=== PATIENT | female | born 1995 | race Caucasian/White ===

== ENCOUNTER 2016-02-14 16:55 | Emergency (ER) ==
[2016-02-14 17:12] VITALS: BP 108/72
[2016-02-14 17:18] LABS: URINE SOURCE CLEAN CATCH
[2016-02-14 17:57] LABS: BILIRUBIN URINE NEGATIVE (NEGATIVE); BLOOD URINE NEGATIVE (NEGATIVE); CLARITY CLEAR (CLEAR); COLOR YELLOW; GLUCOSE URINE NEGATIVE (NEGATIVE); LEUKOCYTES URINE 1+ (NEGATIVE); NITRITE URINE NEGATIVE (NEGATIVE); PROTEIN URINE TRACE mg/dL (NEGATIVE); SP GRAVITY URINE 1.025; UROBILINOGEN URINE NORMAL
[2016-02-14 17:59] LABS: URINE CRYSTAL CA OXALATE PRESENT /HPF; URINE CULTURE PL NEEDED? YES; URINE EPITHELIAL CELLS >10 /HPF (<10); URINE RBC <10 /HPF (<10)
[2016-02-14] MEDS ORDERED: KEFLEX PO ONE (18:07)
--- NOTE | 2016-02-14 18:08 | PROVIDER DOCUMENTATION ---
HPI-General Adult - General Chief Complaint: General Adult Stated Complaint: 7 WEEKS PREG/FLU LIKE SX Time Seen by Provider: 02/14/16 18:04 Source: patient Allergies/Adverse Reactions: Patient Allergies Allergy/AdvReac Type Severity Reaction Status Date / Time latex Allergy Unknown Verified 01/05/16 18:52 codeine AdvReac Severe ITCHING Verified 01/05/16 18:52 prednisone AdvReac Unknown Verified 01/05/16 18:52 Home Medications: Buspirone HCl [Buspar] 10 mg PO QAM 01/12/14 Melatonin 10 mg PO QHS 01/05/16 - History of Present Illness -Gen Adult Nature of Presenting Problems: 21 y/o WF approx 7 weeks by LMP c/o dysuria, frequency, urgency, and fatigue x 24 hours. Denies vaginal bleeding, vaginal discharge or abdominal cramping. Denies fevers, chills or night sweats. Denies cough, congestion, or difficulty breathing. No pre-arrival treatment. Has not had f/u with OBGYN yet. Review of Systems - Adult - REVIEW OF SYSTEMS - ADULT Constitutional: reports: see HPI, fatique. denies: chills, fever Eyes: reports: no symptoms reported. denies: blurred vision, double vision, eye pain Ears, Nose, Mouth & Throat: reports: no symptoms reported. denies: ear pain, nose pain, throat pain Cardiovascular: reports: no symptoms reported. denies: chest pain, palpitations Respiratory: reports: no symptoms reported. denies: cough, shortness of breath , wheezing Gastrointestinal: reports: no symptoms reported. denies: abdominal pain, diarrhea, nausea, vomiting Genitourinary: reports: see HPI, dysuria, frequency, urgency. denies: discharge , flank pain, hematuria, incontinence Musculoskeletal: reports: no symptoms reported. denies: back pain, muscle aches Integumentary: reports: no symptoms reported. denies: rash Neurological: reports: no symptoms reported. denies: headache/migraines Psychiatric: reports: no symptoms reported Endocrine: reports: no symptoms reported Hematologic/Lymphatic: reports: no symptoms reported Allergic/Immunologic: reports: no symptoms reported All Other Systems: Reviewed and Negative Past History - Adult - PAST MEDICAL HISTORY-ADULT Review of Records: reports: Old Records Reviewed, Nursing Assessment Review, Medications Reviewed, Social history reviewed & non-contributory. Major Childhood Illnesses: reports: denies history Cardiovascular: reports: denies history Respiratory: reports: denies history Gastrointestinal: reports: denies history Obstetrical/Gynecological: reports: denies history Genitourinary: reports: denies history Musculoskeletal: reports: denies history Neurological: reports: denies history Psychiatric: reports: anxiety, depression, other (ADD) Endocrine/Immune: reports: denies history Other Conditions: reports: denies history - PRIOR SURGERIES/PROCEDURES Surgical/Procedure History: reports: reviewed, not pertinent, other (w) - IMMUNIZATION STATUS Childhood Immunizations: See Nurse Assessment Flu Vaccine: See Nurse Assessment - FAMILY HISTORY Family History: reviewed, not pertinent, diabetes - SOCIAL HISTORY Living Situation: family Physical Exam-General - PHYSICAL EXAM-ADULT Initial Vital Signs Reviewed: Yes - CONSTITUTIONAL General Appearance: appears well, alert, no apparent distress - EYES Eyes: PERRL/EOMI, pink conjunctivae - HEAD, EARS, NOSE, MOUTH & THROAT HENMT: normocephalic/atraumatic, moist mucous membranes - NECK Neck: non-tender, full range of motion, supple, normal inspection. negative: lymphadenopathy - RESPIRATORY Respiratory: chest non-tender, lungs clear, normal breath sounds, no pleuratic chest pain, no respiratory distress, no accessory muscle use. negative: respiratory distress, decreased breath sounds, accessory muscle use, crackles, rales, rhonchi, wheezing - CARDIOVASCULAR Cardiovascular: normal peripheral pulses, regular rate, rhythm, no edema - GASTROINTESTINAL (ABDOMEN) Abdominal Exam: normal bowel sounds, non tender, soft, no organomegaly, no pulsatile mass. negative: abdominal bruit, abnormal bowel sounds, distended, guarding, rigid, rebound, tenderness - LYMPHATIC Lymphatic: no adenopathy - MUSCULOSKELETAL Back Exam: normal inspection, no CVA tenderness. negative: CVA tenderness Extremity: normal gait - SKIN Integumentary: normal color, normal turgor, warm/dry - NEUROLOGIC Neurologic: grossly normal, no motor/sensory deficits - PSYCHIATRIC Psych/Mental Status: normal mood/affect, normal thought content, normal thought process, oriented x 3 Progress - PLAN OF CARE/RESULTS Progress/Plan/Lab Results: Vital Signs Temp Pulse Resp BP Pulse Ox 02/14/16 17:10 97.2 F L 102 H 18 108/72 100 latex Allergy (Verified 01/05/16 18:52) Unknown codeine Adverse Reaction (Severe, Verified 01/05/16 18:52) ITCHING prednisone Adverse Reaction (Verified 01/05/16 18:52) Unknown Buspirone HCl [Buspar] 10 mg PO QAM 01/12/14 Guaifenesin/D-Methorphan Hb/PE [Deconex Dmx Tablet] 1 each PO TID #30 tablet Melatonin 10 mg PO QHS 01/05/16 Cephalexin [Keflex] 500 mg PO BID #20 capsule 02/14/16 Laboratory 02/14/16 02/14/16 02/14/16 17:21 17:21 17:00 Urine Source CLEAN CATCH Urine Color YELLOW Urine Clarity CLEAR Urine pH 9.0 Ur Specific [place] 1.025 Urine Protein TRACE A Urine Ketones TRACE Urine Blood NEGATIVE Urine Nitrite NEGATIVE Urine Bilirubin NEGATIVE Urine Urobilinogen NORMAL Urine Microscopic RBC <10 Urine WBC 1+ A Urine Microscopic WBC 10-20 A Ur Epithelial Cells >10 A Urine Crystals CA OXALATE PRESENT Urine Bacteria 2+ Urine Glucose NEGATIVE Influenza A (Rapid) NEGATIVE Influenza B (Rapid) NEGATIVE Group A Strep Rapid NEGATIVE Orders Category Date Time Status DIRECT STREP PL Stat Lab 02/14/16 17:[address] Stat Lab 02/14/16 17:[address] W/POSS RFLX CULT [URINALYSIS] Stat Lab 02/14/16 17:00 Completed URINE CULTURE [RM] Routine Lab 02/14/16 18:00 Ordered CephALEXIN [Keflex] Med 02/14/16 18:07 Discontinued 500 mg PO NOW ONE Departure - Departure Time of Disposition Order: 18:07 DIAGNOSIS: Acute UTI Qualifiers: Weeks of gestation: less than 8 weeks Qualified Code(s): Z3A.01 - Less than 8 weeks gestation of Disposition: HOME 01 Certified Medical Emergency: Emergent Condition: Stable Additional Instructions: Follow up with the [facility] Follow Up Instructions: You have been treated by a care provider in the Emergency Department. These instructions are being provided to you so you can have an understanding of how to care for yourself upon discharge. Upon discharge from the Emergency Department, you are responsible for making arrangements for follow-up care by a physician of your choice. Take all prescribed medications as directed. Return to the Emergency Department immediately for any new or worsening symptoms. You may call the Physician Referral phone number at [phone] to obtain a list of Physicians who are taking new patients. Prescriptions: Cephalexin [Keflex] 500 mg PO BID #20 capsule Referrals: None,PCP [Primary Care Provider] - Attestation - Physician/ Mid-level Attestation Patient care was provided by Mid-level provider (COATINGS INSPECTOR/PA):: Yes Mid-level provider:: Christelle Triplett Mid-level documentation review:: The Mid-level provider documentation, treatment plan and medical decision making was reviewed by the physician who agrees with all treatment and medical decision making by the MLP.
== END 2016-02-14 18:37 | disposition home or self-care (01) ==
LOC: P.ED 16:55
DX: O23.41 Unspecified infection of urinary tract in pregnancy, first trimester (principal); Z3A.01 Less than 8 weeks gestation of pregnancy; O26.891 Other specified pregnancy related conditions, first trimester; R30.0 Dysuria; R35.0 Frequency of micturition; R39.15 Urgency of urination; R53.83 Other fatigue; Z79.899 Other long term (current) drug therapy; Z83.3 Family history of diabetes mellitus
CPT/HCPCS: 81001; 87081; 87088; 87430; 87804; 99283

== ENCOUNTER 2016-04-18 16:57 | Emergency (ER) | payer OTHER ==
[2016-04-18 17:13] VITALS: BP 99/68
--- NOTE | 2016-04-18 18:57 | PROVIDER DOCUMENTATION ---
HPI-EENT General - General Chief Complaint: Cold Symptoms Stated Complaint: 17 WEEKS (CONGESTED) Time Seen by Provider: 04/18/16 18:50 Source: patient Allergies/Adverse Reactions: Patient Allergies Allergy/AdvReac Type Severity Reaction Status Date / Time latex Allergy Unknown Verified 04/18/16 17:13 codeine AdvReac Severe ITCHING Verified 04/18/16 17:13 prednisone AdvReac Unknown Verified 04/18/16 17:13 Home Medications: Home Medication List Medication Instructions Recorded Confirmed Last Taken Type Azithromycin [Zithromax Z-Shaq] 250 mg PO DIRECTED #1 pkg 04/18/16 Unknown Rx Promethazine [Phenergan] 1 tab PO DAILY PRN 04/18/16 04/18/16 Unknown History Ranitidine HCl [Zantac 75] 75 mg PO BID 04/18/16 04/18/16 Unknown History - History of Present Illness-EENT General Nature of Presenting Problem: 21 yof c/o cough, congestion, low grade fever, body aches, and nasal drainage for about 2 days. EENT Location: denies: eye (R), eye (L), ear (R), ear (L), nose, mouth, throat, facial, dental, other Quality of Pain: reports: aching. denies: none, burning, cramping, dull, fullness, indigestion, pressure, sharp, stabbing, tearing, throbbing, tightness , other Severity: reports: mild Onset/Duration: reports: 2 days ago. denies: unsure, abrupt, gradual, just prior to arrival, 1/2 hour ago, 1 hour ago, 1-3 hours ago, 4-6 hours ago, 24 hours ago, 3 days ago, 4 days ago, 5 days ago, 6 days ago, 1 week ago, last week , this morning, this afternoon, this evening, last night, other Timing: reports: still present, getting worse Prearrival Treatment: Initiated over the counter meds, Not Used no prearrival treatment, Not Used prescription meds, Not Used squeezing nostrils, Not Used nasal packing, Not Used flushing eyes, Not Used other Associated Symptoms: reports: cough, fever, malaise, sore throat. denies: denies symptoms, change in hearing, drooling, DZ, ear drainage, facial pain/ swelling, WING, MS, nasal congestion/drainage, TRACK EQUIPMENT OPERATOR, poor fluid intake, poor solids intake, sinus infection, SW, tooth pain, voice change, other Locality of Occurance: Home Similar Symptoms Previously?: No Recently seen or treated by another doctor?: No - Eyes Eye Problem Symptoms: denies: eye pain, decrease vision, blurred vision, double vision, curtain, other, burning, itching, sensitivity to light, redness, matting , orbital swelling, eyelid swelling, foreign body sensation - Ears Ear Problem Symptoms: reports: none - Throat/Dental Throat/Dental Problem Symptoms: reports: none Review of Systems - Adult - REVIEW OF SYSTEMS - ADULT Constitutional: reports: see HPI, chills, fever. denies: no symptoms reported, fatique, night sweats, weight gain, weight loss, other Eyes: reports: no symptoms reported. denies: see HPI, discharge, dry eyes, decreased vision, blurred vision, double vision, eye pain, redness, other Ears, Nose, Mouth & Throat: reports: see HPI, sinus problem, throat pain. denies: no symptoms reported, ear discharge, ear pain, hearing loss, tinnitus, epistaxis, nose pain, loose teeth, mouth/dental pain, mouth swelling, hoarseness , throat swelling, other Cardiovascular: reports: no symptoms reported. denies: see HPI, chest pain, edema, heart murmur, irregular heart rate, orthopnea, palpitations, poor circulation, PND, syncope, other Respiratory: reports: no symptoms reported. denies: see HPI, chronic cough, cough, dyspnea on exertion, excessive sputum production, hemoptysis, pleurisy, shortness of breath, wheezing, other Gastrointestinal: reports: no symptoms reported. denies: see HPI, abdominal pain, hematemesis, constipation, diarrhea, difficulty swallowing, frequent heartburn, nausea, poor appetite, rectal bleeding, vomiting, other Genitourinary: reports: no symptoms reported. denies: see HPI, dysuria, discharge, frequency, flank pain, frequent UTI's, hematuria, hesitency, incontinence, urinary retention, urgency, other Musculoskeletal: reports: no symptoms reported. denies: see HPI, bone pain, back pain, frequent leg cramps, joint pain, joint swelling, muscle aches, muscle weakness, neck pain, other Integumentary: reports: no symptoms reported. denies: see HPI, hives, hair loss , itching, mole changes, nail changes, rash, skin sores/ulcer, skin thickening, other Neurological: reports: no symptoms reported. denies: see HPI, ataxia, dizziness /vertigo, headache/migraines, loss of balance, numbness, paresthesia, seizure, slurred speech, syncope, tremors, other All Other Systems: Reviewed and Negative Past History - Adult - PAST MEDICAL HISTORY-ADULT Review of Records: reports: Old Records Reviewed, Nursing Assessment Review, Medications Reviewed, Social history reviewed & non-contributory. Respiratory: reports: asthma Neurological: reports: headaches/migraines (tension) Psychiatric: reports: anxiety, depression, other (ADD) - PRIOR SURGERIES/PROCEDURES Surgical/Procedure History: reports: other (wisdom teeth extracted) - IMMUNIZATION STATUS Childhood Immunizations: See Nurse Assessment Flu Vaccine: See Nurse Assessment - FAMILY HISTORY Family History: reviewed, not pertinent, diabetes Physical Exam- EENT - Physical Exam EENT Initial Vital Signs Reviewed: Yes General Appearance: appears well, alert, no apparent distress. negative: mild distress, moderate distress, severe distress, cachetic, obese, thin, anxious, lethargic, slow to respond, obtunded, combative, other Eye Exam: bilateral eye: normal inspection, PERRL, EOMI Ear Exam: bilateral ear: auricle normal, canal normal, TM normal Nasal Exam: discharge. negative: normal inspection, active bleeding, dried blood, foreign body, sinus tenderness, other Throat Exam: normal mouth inspection, pharynx normal. negative: dental tenderness, excessive drooling, foreign body, mandibular swelling, maxillary swelling, pharynx swelling, pharynx tenderness, tongue swollen, tonsillar exudate, tonsillar swelling, trismus, uvula swelling, voice changes, other Neck: non-tender, full range of motion, supple, normal inspection. negative: Brudzinski's sign, carotid bruit, C-spine tenderness, limited range of motion, lymphadenopathy, meningismus, trachial deviation, tender lateral, tender midline , thyromegaly, other Respiratory: chest non-tender, lungs clear, normal breath sounds, no pleuratic chest pain, no respiratory distress, no accessory muscle use. negative: respiratory distress, decreased breath sounds, accessory muscle use, crackles, rales, rhonchi, stridor, wheezing, dull on percussion, prolonged expiration, pain on inspiration, plerual rub, retractions, splinting, decreased rate, increased rate, crepitus, other Cardiovascular: normal peripheral pulses, regular rate, rhythm, no edema, no gallop, no JVD, no murmur. negative: JVD, bradycardia, tachycardia, diastolic murmur, systolic murmur, gallop/S3, gallop/S4, extra beats, friction rub, irregularly irregular, PMI displaced laterally, other Abdominal Exam: normal bowel sounds, non tender, soft, no organomegaly, no pulsatile mass. negative: abdominal bruit, abnormal bowel sounds, distended, guarding, rigid, rebound, tenderness, hernia, mass, hepatomegaly, spleenomegaly , McBurney's point tenderness, Page's sign, obturator sign, prominent aortic pulsations, psoas, Rovsing's sign, other Lymphatic: no adenopathy. negative: axilla node tender, cervical node tenderness, inguinal node tender, enlargement, striations, streaking, other Back Exam: normal inspection, no CVA tenderness, no vertebral tenderness. negative: CVA tenderness, decreased range of motion, ecchymosis, kyphosis, lordosis, muscle spasm, scoliosis, swelling, vertebral tenderness, other Extremity: normal range of motion, non-tender, normal gait, normal inspection, no pedal edema, no calf tenderness, normal capillary refill. negative: pelvis stable, abnormal NV exam, calf tenderness, deformity, erythema, inflammation, joint effusion, pulse deficit, pedal edema, slow capillary refill, swelling, tenderness, other Integumentary: normal color, normal turgor, warm/dry. negative: abrasion(s), blanching, cyanosis, diaphoresis, decubitus, dependent lividity, ecchymosis, embolic lesions, erythema, signs of IVDA, jaundice, laceration(s), mottled, pallor, petechiae, purpura, rash, swelling, tenderness, warm, zoster-like rash, other Neurologic: grossly normal Psych/Mental Status: oriented x 3 Progress - PLAN OF CARE/RESULTS Progress/Plan/Lab Results: Laboratory Tests 04/18/16 19:00 Influenza A (Rapid) NEGATIVE Influenza B (Rapid) NEGATIVE Orders Category Date Time Status INFLUENZA SCREEN PL Routine Lab 04/18/16 19:00 Completed Vital Signs Temp Pulse Resp BP Pulse Ox 04/18/16 17:09 97.6 F 87 18 99/68 100 latex Allergy (Verified 04/18/16 17:13) Unknown codeine Adverse Reaction (Severe, Verified 04/18/16 17:13) ITCHING prednisone Adverse Reaction (Verified 04/18/16 17:13) Unknown Azithromycin [Zithromax Z-Shaq] 250 mg PO DIRECTED #1 pkg 04/18/16 Promethazine [Phenergan] 1 tab PO DAILY PRN 04/18/16 Ranitidine HCl [Zantac 75] 75 mg PO BID 04/18/16 Laboratory 04/18/16 19:00 Influenza A (Rapid) NEGATIVE Influenza B (Rapid) NEGATIVE Departure - Departure Time of Disposition Order: 20:08 DIAGNOSIS: Upper respiratory infection Qualifiers: URI type: unspecified URI Qualified Code(s): J06.9 - Acute upper respiratory infection, unspecified Disposition: HOME 01 Certified Medical Emergency: Emergent Condition: Stable Additional Instructions: ED Follow Up Instructions: You have been treated by a care provider in the Emergency Department. These instructions are being provided to you so you can have an understanding of how to care for yourself upon discharge. Upon discharge from the Emergency Department, you are responsible for making arrangements for follow-up care by a physician of your choice. Take all prescribed medications as directed. Return to the Emergency Department immediately for any new or worsening symptoms. You may call the Physician Referral phone number at [phone] to obtain a list of Physicians who are taking new patients. Prescriptions: Azithromycin [Zithromax Z-Shaq] 250 mg PO DIRECTED #1 pkg Referrals: Junior Fraire MD [Primary Care Provider] - Forms: Return to School/Parent Work Instructions: Azithromycin tablets, Upper Respiratory Infection, Adult, Easy-to -Read Attestation - Physician/ SHERRILL Attestation Patient care was provided by Advanced Practice Provider:: Yes Advanced Practice Provider:: Dg Laurent Advanced Practice Provider documentation review:: The Mid-level provider documentation, treatment plan and medical decision making was reviewed by the physician who agrees with all treatment and medical decision making by the [facility]. Physician Attestation - Physician Attestation I, the provider, attest to the following statement:: Dg Laurent Physician documentation Attestation:: This documentation recorded by the scribe accurately reflects the service I personally performed and the decisions made by me.
== END 2016-04-18 20:31 | disposition home or self-care (01) ==
LOC: P.ED 16:57
DX: J06.9 Acute upper respiratory infection, unspecified (principal); R05 Cough; R09.81 Nasal congestion; R50.9 Fever, unspecified; M79.1 Myalgia; R53.81 Other malaise; J02.9 Acute pharyngitis, unspecified; R51 Headache; F98.8 Other specified behavioral and emotional disorders with onset usually occurring in childhood and adolescence; Z83.3 Family history of diabetes mellitus; Z79.899 Other long term (current) drug therapy
CPT/HCPCS: 87804; 99283

== ENCOUNTER 2016-04-30 17:47 | Emergency (ER) ==
[2016-04-30 18:14] LABS: URINE SOURCE CLEAN CATCH
[2016-04-30 18:33] LABS: BILIRUBIN URINE NEGATIVE (NEGATIVE); BLOOD URINE NEGATIVE (NEGATIVE); CLARITY SL. CLOUDY (CLEAR); COLOR YELLOW; GLUCOSE URINE NEGATIVE (NEGATIVE); LEUKOCYTES URINE 1+ (NEGATIVE); NITRITE URINE NEGATIVE (NEGATIVE); PH URINE 6.5; PROTEIN URINE NEGATIVE (NEGATIVE); SP GRAVITY URINE 1.015; UROBILINOGEN URINE NORMAL
[2016-04-30] MEDS ORDERED: NS 500 ML IV ONE (18:40)
[2016-04-30 18:44] LABS: URINE CAST NONE SEEN /LPF; URINE CRYSTAL NONE SEEN /HPF; URINE CULTURE PL NEEDED? YES; URINE EPITHELIAL CELLS >10 /HPF (<10)
--- NOTE | 2016-04-30 19:11 | PROVIDER DOCUMENTATION ---
HPI-Female /OB/Breast - General Source: reports: patient - History of Present Illness-Female /OB Does patient report she is ?: Yes Radiation: reports: none Severity in ED: reports: moderate Onset/Duration: reports: this morning Timing: reports: still present Vaginal Symptoms: reports: no symptoms Urinary Symptoms: reports: no symptoms Related Symptoms: reports: no symptoms <Bobbi Mancia - Last Filed: 04/30/16 19:14> <Sandra Del Toro - Last Filed: 04/30/16 19:48> - General Chief Complaint: Nausea/Vomiting Stated Complaint: 19 WKS PREG/WEAKNESS Time Seen by Provider: 04/30/16 18:18 Allergies/Adverse Reactions: Patient Allergies Allergy/AdvReac Type Severity Reaction Status Date / Time latex Allergy Unknown Verified 04/18/16 17:13 codeine AdvReac Severe ITCHING Verified 04/18/16 17:13 prednisone AdvReac Unknown Verified 04/18/16 17:13 Home Medications: Home Medication List Medication Instructions Recorded Confirmed Last Taken Type Promethazine [Phenergan] 1 tab PO DAILY PRN 04/18/16 04/18/16 Unknown History Ranitidine HCl [Zantac 75] 75 mg PO BID 04/18/16 04/18/16 Unknown History Nitrofurantoin Monohyd/M-Cryst 100 mg PO BID #20 capsule 04/30/16 Unknown Rx [Macrobid 100 mg Capsule] #103/Iron Fumarate/FA 1 tab PO DAILY 04/30/16 04/30/16 Unknown History [ Tablet] - History of Present Illness-Female /OB Nature of Presenting Problem: 21 Y/O F presents to ED with V. Pt states that she is a 19 week OB, stated she took her vitamins this morning and hasn't been able to stop Vomiting since then. Pt states Dr mary on Wednesday, with loss of appetite. Denies, D/N, chills and vaginal bleeding. (Bobbi Mancia) Review of Systems - Adult - REVIEW OF SYSTEMS - ADULT Constitutional: denies: chills, fever Eyes: reports: no symptoms reported Ears, Nose, Mouth & Throat: reports: no symptoms reported Cardiovascular: reports: no symptoms reported Respiratory: reports: no symptoms reported Gastrointestinal: reports: poor appetite, vomiting. denies: abdominal pain, diarrhea, nausea Genitourinary: denies: hematuria Musculoskeletal: reports: no symptoms reported Integumentary: reports: no symptoms reported Neurological: reports: no symptoms reported Psychiatric: reports: no symptoms reported Endocrine: reports: no symptoms reported Hematologic/Lymphatic: reports: no symptoms reported Allergic/Immunologic: reports: no symptoms reported All Other Systems: Reviewed and Negative <Bobbi Mancia - Last Filed: 04/30/16 19:14> Past History - Adult - PAST MEDICAL HISTORY-ADULT Review of Records: reports: Old Records Reviewed, Nursing Assessment Review, Medications Reviewed, Social history reviewed & non-contributory. Respiratory: reports: asthma Neurological: reports: headaches/migraines (tension) Psychiatric: reports: anxiety, depression, other (ADD) - PRIOR SURGERIES/PROCEDURES Surgical/Procedure History: reports: other (wisdom teeth extracted) - IMMUNIZATION STATUS Childhood Immunizations: See Nurse Assessment Flu Vaccine: See Nurse Assessment - FAMILY HISTORY Family History: reviewed, not pertinent, diabetes <Bobbi Mancia - Last Filed: 04/30/16 19:14> Physical Exam-General - PHYSICAL EXAM-ADULT Initial Vital Signs Reviewed: Yes - CONSTITUTIONAL General Appearance: appears well, alert, no apparent distress - EYES Eyes: PERRL/EOMI, pink conjunctivae - HEAD, EARS, NOSE, MOUTH & THROAT HENMT: normocephalic/atraumatic, moist mucous membranes, normal ENT inspection, TMs normal, pharynx normal - RESPIRATORY Respiratory: lungs clear, normal breath sounds - CARDIOVASCULAR Cardiovascular: normal peripheral pulses, tachycardia - GASTROINTESTINAL (ABDOMEN) Abdominal Exam: non tender, soft - MUSCULOSKELETAL Extremity: normal range of motion, normal capillary refill - SKIN Integumentary: normal color, normal turgor, warm/dry - PSYCHIATRIC Psych/Mental Status: normal mood/affect, oriented x 3 <Sandra Del Toro - Last Filed: 04/30/16 19:48> Progress <Bobbi Mancia - Last Filed: 04/30/16 19:14> <Sandra Del Toro - Last Filed: 04/30/16 19:48> - PLAN OF CARE/RESULTS Progress/Plan/Lab Results: Discussed care, diagnosis and need for follow-up, patient verbalized understanding Laboratory Tests 04/30/16 18:06 Urine Source CLEAN CATCH Urine Color YELLOW Urine Clarity SL. CLOUDY A Urine pH 6.5 Ur Specific [place] 1.015 Urine Protein NEGATIVE Urine Ketones TRACE Urine Blood NEGATIVE Urine Nitrite NEGATIVE Urine Bilirubin NEGATIVE Urine Urobilinogen NORMAL Urine Microscopic RBC Not Reportable Urine WBC 1+ A Urine Microscopic WBC 10-20 A Ur Epithelial Cells >10 A Urine Crystals NONE SEEN Urine Bacteria 1+ Urine Casts NONE SEEN Urine Yeast NONE SEEN Urine Glucose NEGATIVE Orders Category Date Time Status FHT [ Heart Tones] NOW Care 04/30/16 19:08 Active UA [URINALYSIS PL W/POSS RFLX CULT] [URINALYSIS] Stat Lab 04/30/16 18:06 Completed URINE CULTURE [RM] Routine Lab 04/30/16 18:44 Ordered 0.9% Sodium Chloride Inj [Ns] 500 ml Med 04/30/16 18:40 Discontinued IV 999 mls/hr Last Vital Signs Temp 97.5 F L 04/30/16 18:00 Pulse 106 H 04/30/16 18:00 Resp 18 04/30/16 18:00 BP 97/63 04/30/16 18:00 Pulse Ox 100 04/30/16 18:00 Allergies latex Allergy (Verified 04/18/16 17:13) Unknown codeine Adverse Reaction (Severe, Verified 04/18/16 17:13) ITCHING prednisone Adverse Reaction (Verified 04/18/16 17:13) Unknown Orders 04/30/16 19:08 FHT [ Heart Tones] NOW Lab Tests 04/30/16 18:06 Urine Source CLEAN CATCH Urine Color YELLOW Urine Clarity SL. CLOUDY A Urine pH 6.5 Ur Specific [place] 1.015 Urine Protein NEGATIVE Urine Ketones TRACE Urine Blood NEGATIVE Urine Nitrite NEGATIVE Urine Bilirubin NEGATIVE Urine Urobilinogen NORMAL Urine Microscopic RBC Not Reportable Urine WBC 1+ A Urine Microscopic WBC 10-20 A Ur Epithelial Cells >10 A Urine Crystals NONE SEEN Urine Bacteria 1+ Urine Casts NONE SEEN Urine Yeast NONE SEEN Urine Glucose NEGATIVE Vital Signs - 24 hr 04/30/16 18:00 Temperature 97.5 F L Pulse Rate 106 H Respiratory 18 Rate Blood Pressure 97/63 O2 Sat by Pulse 100 Oximetry (Sandra Del Toro) Departure <Bobbi Mancia - Last Filed: 04/30/16 19:14> - Departure Time of Disposition Order: 19:48 Certified Medical Emergency: Emergent <Sandra Del Toro - Last Filed: 04/30/16 19:48> - Departure DIAGNOSIS: UTI (urinary tract infection) during , Nausea and vomiting during Disposition: HOME 01 Condition: Stable Additional Instructions: ED Follow Up Instructions: You have been treated by a care provider in the Emergency Department. These instructions are being provided to you so you can have an understanding of how to care for yourself upon discharge. Upon discharge from the Emergency Department, you are responsible for making arrangements for follow-up care by a physician of your choice. Take all prescribed medications as directed. Return to the Emergency Department immediately for any new or worsening symptoms. You may call the Physician Referral phone number at [phone] to obtain a list of Physicians who are taking new patients. Prescriptions: Nitrofurantoin Monohyd/M-Cryst [Macrobid 100 mg Capsule] 100 mg PO BID #20 capsule Referrals: Junior Fraire MD [Primary Care Provider] - Attestation - Scribe Verification/Attestation Scribe:: Bobbi Mancia Acting as Scribe for:: Olivier Felder Scribe documention review:: This chart was documented by a scribe and accurately reflects the service the provider performed and the decisions made by the provider. - Physician/ SHERRILL Attestation Patient care was provided by Advanced Practice Provider:: Yes Advanced Practice Provider:: Sandra Del Toro Advanced Practice Provider documentation review:: The Mid-level provider documentation, treatment plan and medical decision making was reviewed by the physician who agrees with all treatment and medical decision making by the MLP. <Bobbi Mancia - Last Filed: 04/30/16 19:14> - Physician/ SHERRILL Attestation Patient care was provided by Advanced Practice Provider:: Yes Advanced Practice Provider:: Sandra Del Toro Advanced Practice Provider documentation review:: The Mid-level provider documentation, treatment plan and medical decision making was reviewed by the physician who agrees with all treatment and medical decision making by the MLP. <Sandra Del Toro - Last Filed: 04/30/16 19:48> Physician Attestation
[2016-04-30] MEDS ORDERED: PHENERGAN IM ONE (19:24)
[2016-04-30 20:11] VITALS: BP 101/066
== END 2016-04-30 20:09 | disposition home or self-care (01) ==
LOC: P.ED 17:47
DX: O21.0 Mild hyperemesis gravidarum (principal); O23.42 Unspecified infection of urinary tract in pregnancy, second trimester; O26.892 Other specified pregnancy related conditions, second trimester; R00.0 Tachycardia, unspecified; Z3A.19 19 weeks gestation of pregnancy; Z79.899 Other long term (current) drug therapy
CPT/HCPCS: 81001; 87088; 96360; 96372; J2550; J7040

== ENCOUNTER 2016-09-22 14:00 | Inpatient (IN) ==
[2016-09-22] MEDS ORDERED: STADOL IV PRN ×2 (21:09)
[2016-09-22] MEDS ORDERED: PEPCID IV PRN (21:09)
[2016-09-22] MEDS ORDERED: TYLENOL PO PRN (21:09)
[2016-09-22] MEDS ORDERED: AMBIEN PO PRN (21:09)
[2016-09-22] MEDS ORDERED: BRETHINE SUBQ PRN (21:09)
[2016-09-22] MEDS ORDERED: KEFZOL 1 GM/D5W 1 GM/50 ML IVPB IV PRN (21:09)
[2016-09-22] MEDS ORDERED: ZOFRAN IV PRN (21:09)
[2016-09-22] MEDS ORDERED: PEPCID PO PRN (21:09)
[2016-09-22] MEDS: LR 1,000 ML IV SCH (21:25)
[2016-09-22] MEDS ORDERED: CYTOTEC PO ONE (23:00)
[2016-09-22 23:12] LABS: URINE SOURCE VOIDED
[2016-09-22 23:12] LABS: MANUAL DIFF NEEDED? NO
[2016-09-22 23:35] LABS: BASO% 0.1 % (0.0-0.8); EOS# 0.12 X1000 (0.0-0.7); HEMATOCRIT 36.2 % (37.0-47.0); HEMOGLOBIN 12.2 g/dL (12.0-16.0); IMM GRAN# 0.06 X1000 (0.0-0.04); IMM GRAN% 0.5 % (0.0-0.5); LYMPH# 1.53 X1000 (1.2-3.4); LYMPH% 13.2 % (20.5-51.1); MCHC 33.7 g/dL (33-37); MCV 89.2 FL (81-99); MONO# 0.85 X1000 (0.11-0.59); MONO% 7.3 % (1.7-9.3); MPV 10.6 FL (7.4-10.4); NEUT% 77.9 % (42.2-75.2); PLT 340 X1000 (130-400); RBC 4.06 XMIL (4.2-5.4)
[2016-09-22 23:38] LABS: BILIRUBIN URINE NEGATIVE (NEGATIVE); BLOOD URINE NEGATIVE (NEGATIVE); CLARITY SLIGHTLY CLOUDY (CLEAR); COLOR YELLOW; GLUCOSE URINE NEGATIVE (NEGATIVE)
[2016-09-22 23:39] LABS: LEUKOCYTES URINE 2+ (NEGATIVE); NITRITE URINE NEGATIVE (NEGATIVE); PH URINE 6.5; PROTEIN URINE TRACE mg/dL (NEGATIVE); UROBILINOGEN URINE 1+(1 mg/dL)
[2016-09-22 23:48] LABS: UR AMPHETAMINES QUAL NONE DETECTED (NONE DETECT); UR BARBITUATES QUAL NONE DETECTED (NONE DETECT); UR BENZODIAZEPIN QUAL NONE DETECTED (NONE DETECT); UR COCAINE QUAL NONE DETECTED (NONE DETECT); UR MDMA QUAL NONE DETECTED (NONE DETECT); UR METHADONE QUAL NONE DETECTED (NONE DETECT)
[2016-09-22 23:49] LABS: UR CANNABINOIDS QUAL NONE DETECTED (NONE DETECT); UR METHAMPHETAMINE QUAL PRESUMPTIVE POSITIVE (NONE DETECT); UR OPIATES QUAL NONE DETECTED (NONE DETECT); UR OXYCODONE QUAL NONE DETECTED (NONE DETECT); UR PCP QUAL NONE DETECTED (NONE DETECT); UR TCA QUAL NONE DETECTED (NONE DETECT)
[2016-09-23] MEDS: STADOL IV PRN ×3 (01:16→06:27)
[2016-09-23] MEDS ORDERED: CYTOTEC PO SCH (03:00)
[2016-09-23] MEDS ORDERED: FENTANYL-BUPIV-NS 2 MCG-0.1% 200 ML EPIDURAL PRN (06:05)
[2016-09-23] MEDS ORDERED: PITOCIN 30 UNITS/LR 30 UNITS/500 ML IV.SOLN IV SCH (07:00)
[2016-09-23] MEDS: LR 1,000 ML IV SCH (07:00)
[2016-09-23] MEDS ORDERED: XYLOCAINE-MPF 1% ONE (08:03)
[2016-09-23] MEDS ORDERED: MINERAL OIL ONE (08:04)
[2016-09-23] MEDS ORDERED: AMBIEN PO PRN (12:19)
[2016-09-23] MEDS ORDERED: MINERAL OIL PO PRN (12:19)
[2016-09-23] MEDS ORDERED: PERI MEDS (DERMOPLAST/NUPERCAINAL/TUCKS) MISC PRN (12:19)
[2016-09-23] MEDS ORDERED: PERCOCET-5 PO PRN (12:19)
[2016-09-23] MEDS ORDERED: BOOSTRIX VACCINE IM ONE (12:19)
[2016-09-23] MEDS ORDERED: HYDROXYZINE IM PRN (12:19)
[2016-09-23] MEDS ORDERED: PERCOCET-10 PO PRN (12:19)
[2016-09-23] MEDS ORDERED: BENADRYL IV PRN (12:19)
[2016-09-23] MEDS ORDERED: PITOCIN 20 UNITS/LR 20 UNITS/1,000 ML IV.SOLN IV SCH (12:19)
[2016-09-23] MEDS ORDERED: PITOCIN IM PRN (12:19)
[2016-09-23] MEDS ORDERED: HYDROXYZINE PO PRN (12:19)
[2016-09-23] MEDS ORDERED: M-M-R II VACCINE SUBQ ONE (12:19)
[2016-09-23] MEDS ORDERED: XYLOCAINE-MPF 1% INJ PRN (12:19)
[2016-09-23] MEDS ORDERED: PITOCIN 30 UNITS/LR 30 UNITS/500 ML IV.SOLN IV ONE (12:19)
[2016-09-23] MEDS ORDERED: CYTOTEC PO PRN (12:19)
[2016-09-23] MEDS ORDERED: BENADRYL PO PRN (12:19)
[2016-09-23] MEDS ORDERED: NORCO-10 PO PRN (12:19)
--- NOTE | 2016-09-23 14:02 | OPERATIVE NOTE ---
PROCEDURE DATE: 09/23/2016 DELIVERY PHYSICIAN: Dr. Abhijeet Barnard. TYPE OF DELIVERY: Vaginal delivery with outlet vacuum forceps. ANESTHESIA: Epidural. FINDINGS: At 11:40, a 7 pound 2 ounce female infant was delivered in occiput anterior presentation. There was thick meconium-stained fluid. Apgars were 7 at one minute, 9 at five minutes. SUMMARY: Ms. De Anda is a 21-year-old primigravida at 40-weeks gestation. Her blood type is AB positive. Rubella immune. Hepatitis B surface antigen, HIV, and group B strep is negative. She was brought into labor and delivery last night for Cytotec, and this morning we began Pitocin. This morning she was 7 cm. She had spontaneous rupture of membranes. IV Pitocin was begun after an epidural was placed for labor pain management. She continued to progress in labor without signs of distress or dystocia. She became complete and began pushing. She had poor pushing efforts, and the decision was made to proceed with outlet vacuum forceps. The patient was placed in the dorsal lithotomy position. Perineum was prepped and draped in usual fashion. A midline episiotomy was performed. The vacuum forceps was applied. With gentle traction, the 's head was delivered. The oropharynx was bulb suctioned. The shoulders and body delivered without complications. Cord was clamped and cut, and the was handed to the nurses for further care and evaluation. Cord blood was obtained. Placenta was spontaneously delivered and was intact. The second-degree midline episiotomy was repaired in layers using 2-0 Vicryl suture. Blood loss was approximately 200 mL. There no complications. Patient remained in the LDR recovering without difficulty. cc: Abhijeet Barnard MD
[2016-09-23] MEDS: MOTRIN PO PRN (14:16)
[2016-09-23] MEDS: NORCO-5 PO PRN ×2 (14:17→20:52)
[2016-09-23] MEDS: PERICOLACE PO SCH (20:22)
[2016-09-24] MEDS: NORCO-5 PO PRN ×3 (04:59→18:39)
[2016-09-24] MEDS: MOTRIN PO PRN ×2 (05:00→13:30)
[2016-09-24 06:23] LABS: HEMATOCRIT 31.2 % (37.0-47.0); HEMOGLOBIN 10.3 g/dL (12.0-16.0); MPV 10.4 FL (7.4-10.4); RBC 3.43 XMIL (4.2-5.4)
[2016-09-24] MEDS: PRECARE PO SCH (09:13)
[2016-09-24] MEDS: PERICOLACE PO SCH (20:32)
[2016-09-25] MEDS: NORCO-5 PO PRN ×2 (01:23→10:41)
[2016-09-25] MEDS: MOTRIN PO PRN ×2 (01:23→10:42)
[2016-09-25 10:35] VITALS: BP 110/58
[2016-09-25] MEDS: PRECARE PO SCH (10:41)
--- NOTE | 2016-09-25 13:04 | DISCHARGE SUMMARY ---
ADMISSION DATE: 09/22/2016 DISCHARGE DATE: 09/25/2016 ADMIT DIAGNOSIS: Term for induction. DISCHARGE DIAGNOSIS: Term , delivered. CONDITION: Stable. DIET: As tolerated. ACTIVITY: Routine . MEDICATIONS: Continue vitamins with iron, [id number] stool softeners, over-the- counter nonsteroidals, and a script for a few [place] 5 mg was given. FOLLOW UP: She is to follow up in 6 weeks. HOSPITAL COURSE: Please refer to Ms. De Anda records and delivery note. She was admitted, had a successful vaginal delivery, and now is currently day 2 and desiring discharge. PHYSICAL EXAMINATION: VITAL SIGNS: Vital signs are stable. She is afebrile. GENERAL: She is alert, cooperative, and in no distress. NECK: Supple. LUNGS: Clear. HEART: Regular, sinus rhythm. ABDOMEN: Slightly distended. The uterus is firm and nontender. EXTREMITIES: No cyanosis, clubbing, or edema in her extremities. LABORATORY DATA: Hemoglobin is 10.3. DISPOSITION: We will discharge her with the above instructions. cc: MD Abhijeet Dowell MD
== END 2016-09-25 14:35 | disposition home or self-care (01) ==
LOC: P.LD 20:08 → P.WC 09-23 14:56
PROVIDERS: ADMIT Obstetrics & Gynecology; ATTEND Obstetrics & Gynecology